=== PATIENT | male | born 1995 | race Caucasian/White ===

== ENCOUNTER 2018-04-09 15:49 | Emergency (ER) | payer MEDICAID, OTHER ==
[~2018-04-09] VITALS: Ht 170.2 cm; Wt 47.6 kg
--- OUTSIDE RECORDS SUMMARY | 2018-04-09 15:54 | XMS REPORT ---
Author Author VELIA PRADO Organization [facility] Address [address] [place] [address] Care Team Providers Care Pc Support Specialist Name Role Phone VELIA PRADO Unavailable PROBLEMS Type Condition ICD9-CM Code [id number] Code Onset Dates Condition Status SNOMED Code Problem Generalized anxiety disorder F41.1 Active 38790399 Problem Anxiety F41.9 Active [id number] ALLERGIES No Known Allergies ENCOUNTERS Encounter Location Date Diagnosis [facility] [id number] [place] [address] Dec, Generalized anxiety disorder F41.1 [facility] [id number] [place] [address] Dec, Generalized anxiety disorder F41.1 [facility] [id number], [place] [address] Dec, 2017 Anxiety F41.9 IMMUNIZATIONS No Known Immunizations SOCIAL HISTORY Never Assessed REASON FOR VISIT Anxiety-JUSTICE [place], patient having concerns about depression PLAN OF CARE Activity Details Follow Up 4 Weeks Reason: VITAL SIGNS Height 5 ft 7 in in 2017-12-29 Weight 107.3 lbs 2017-12-29 Temperature 99.0 degrees Fahrenheit 2017-12-29 Heart Rate 87 bpm 2017-12-29 Respiratory Rate 18 2017-12-29 Oximetry on room air:97 % 2017-12-29 BMI 16.80 kg/m2 2017-12-29 Blood pressure systolic 110 mmHg 2017-12-29 Blood pressure diastolic 80 mmHg 2017-12-29 MEDICATIONS Medication Instructions Dosage Frequency Start Date End Date Duration Status Sertraline HCl 50 mg Orally Once a day 1 tablet 24h Dec, 30 day (s) Active HydrOXYzine Pamoate 25 MG Orally every 8 hrs prn anxiety 1 capsule as needed Dec, 28 days Active RESULTS No Results PROCEDURES No Known procedures INSTRUCTIONS MEDICATIONS ADMINISTERED No Known Medications MEDICAL (GENERAL) HISTORY Type Description Date Medical History depression Surgical History broken right hand 2012 Hospitalization History surgery
--- OUTSIDE RECORDS SUMMARY | 2018-04-09 15:54 | XMS REPORT ---
Author Author BEBA LEON Organization [facility] Address [address] [place] [address] Care Team Providers Care Dial Screw Assembler Name Role Phone BEBA LEON Unavailable PROBLEMS Type Condition ICD9-CM Code [id number] Code Onset Dates Condition Status SNOMED Code Problem Generalized anxiety disorder F41.1 Active 13676762 Problem Anxiety F41.9 Active [id number] ALLERGIES No Information ENCOUNTERS Encounter Location Date Diagnosis [facility] [id number], [place] [address] Dec, Generalized anxiety disorder F41.1 [facility] [address], [place] [address] Dec, Generalized anxiety disorder F41.1 [facility] [id number], [place] [address] Dec, Anxiety F41.9 IMMUNIZATIONS No Known Immunizations SOCIAL HISTORY Never Assessed REASON FOR VISIT intake PLAN OF CARE Activity Details Follow Up 3 Weeks Reason: VITAL SIGNS MEDICATIONS No Known Medications RESULTS No Results PROCEDURES Procedure Date Ordered Result Body Site Psych diagnostic evaluation, new patient Dec 29, 2017 INSTRUCTIONS MEDICATIONS ADMINISTERED No Known Medications MEDICAL (GENERAL) HISTORY Type Description Date Medical History depression Surgical History broken right hand 2012 Hospitalization History surgery
--- OUTSIDE RECORDS SUMMARY | 2018-04-09 15:54 | XMS REPORT ---
Author Author BEBA LEON Organization [facility] Address [address] [place] [address] Care Team Providers Care Punch Finisher Name Role Phone BEBA LEON Unavailable PROBLEMS Type Condition ICD9-CM Code JHN98-[id number] Code Onset Dates Condition Status SNOMED Code Problem Generalized anxiety disorder F41.1 Active 36827876 Problem Anxiety F41.9 Active 98332812 ALLERGIES No Information ENCOUNTERS Encounter Location Date Diagnosis [facility] [id number], [place] [address] Dec, Generalized anxiety disorder F41.1 [facility] [id number], [place] [address] Dec, Generalized anxiety disorder F41.1 [facility] [id number] [address] Dec, Anxiety F41.9 IMMUNIZATIONS No Known Immunizations SOCIAL HISTORY Never Assessed REASON FOR VISIT [facility] PLAN OF CARE Activity Details Follow Up Following day Reason: VITAL SIGNS MEDICATIONS No Known Medications RESULTS No Results PROCEDURES Procedure Date Ordered Result Body Site Psychotherapy, patient &/family, 30 minutes, new patient Dec 28, 2017 INSTRUCTIONS MEDICATIONS ADMINISTERED No Known Medications MEDICAL (GENERAL) HISTORY Type Description Date Medical History depression Surgical History broken right hand 2012 Hospitalization History surgery
--- OUTSIDE RECORDS SUMMARY | 2018-04-09 15:54 | XMS REPORT ---
Author Author FLY DONIS [facility] Address [address] [place] [address] Care Team Providers Care Pipe Organ Mechanic Apprentice Name Role Phone GOLDMANYAYA HENDERSONFLY ZIEGLER Unavailable PROBLEMS Type Condition ICD9-CM Code QTW12-BI Code Onset Dates Condition Status SNOMED Code Problem Seasonal allergies J30.2 Active 196945933 Problem Generalized anxiety disorder F41.1 Active 06173339 Problem Anxiety F41.9 Active 60027446 ALLERGIES No Known Allergies ENCOUNTERS Encounter Location Date Diagnosis [facility] [id number] [place] [phone] Jan, Seasonal allergies J30.2 [facility] [id number] [place] [phone] Dec, Generalized anxiety disorder F41.1 [facility] [address] [address] Dec, Generalized anxiety disorder F41.1 [facility] [id number] [place] [address] Dec, Anxiety F41.9 IMMUNIZATIONS Vaccine Route Administration Date Status DEXAMETHASONE 4MG/ML (PER 1 MG) IM Intramuscular Jan 31, 2018 Administered DEPO MEDROL 40 MG/ML IM Intramuscular Jan 31, 2018 Administered SOCIAL HISTORY Never Assessed REASON FOR VISIT right eye is red et swollen since last noc. reports itching, denies pain. autumn, eye was matted shut this am, also reports cough et congestion for the past few days. autumn PLAN OF CARE Activity Details Follow Up prn Reason: VITAL SIGNS Height 5 ft 7 in in 2018-01-31 Weight 109.8 lbs 2018-01-31 Temperature 98.2 degrees Fahrenheit 2018-01-31 Heart Rate 80 bpm 2018-01-31 Respiratory Rate 20 2018-01-31 BMI 17.20 kg/m2 2018-01-31 Blood pressure systolic 114 mmHg 2018-01-31 Blood pressure diastolic 66 mmHg 2018-01-31 MEDICATIONS Medication Instructions Dosage Frequency Start Date End Date Duration Status Patanol 0.1 % Ophthalmic Twice a day 1 drop into affected eye 12h Jan, Active HydrOXYzine Pamoate 25 MG Orally every 8 hrs prn anxiety 1 capsule as needed Dec, 28 days Active Sertraline HCl 50 mg Orally Once a day 1 tablet 24h Dec, 30 day (s) Active RESULTS No Results PROCEDURES Procedure Date Ordered Result Body Site DEPO MEDROL 40 MG/ML Jan 31, 2018 DEXAMETHASONE 4MG/ML (PER 1 MG) Jan 31, 2018 THER/PROPH/DIAG INJ, SC/IM Jan 31, 2018 INSTRUCTIONS MEDICATIONS ADMINISTERED No Known Medications MEDICAL (GENERAL) HISTORY Type Description Date Medical History depression Surgical History broken right hand 2012 Hospitalization History surgery
[2018-04-09 16:33] LABS: BASOPHILS % (AUTO) 0 % (0-10); EOSINOPHILS % (AUTO) 0 % (0-10); HEMATOCRIT 43 % (40-54); HEMOGLOBIN 14.9 G/DL (13.3-17.7); LYMPHOCYTES # (AUTO) 1.2 X 10^3 (1.0-4.0); LYMPHOCYTES % (AUTO) 13 % (12-44); MEAN CORPUSCULAR HEMOGLOBIN 32 PG (25-34); MEAN CORPUSCULAR HGB CONC 35 G/DL (32-36); MEAN CORPUSCULAR VOLUME 92 FL (80-99); MEAN PLATELET VOLUME 9.6 FL (7.4-10.4); MONOCYTES # (AUTO) 0.8 X 10^3 (0.0-1.0); MONOCYTES % (AUTO) 9 % (0-12); NEUTROPHILS # (AUTO) 7.5 X 10^3 (1.8-7.8); NEUTROPHILS % (AUTO) 78 % (42-75); PLATELET COUNT 323 10^3/uL (130-400); RED CELL DISTRIBUTION WIDTH 12.4 % (10.0-14.5); WHITE BLOOD COUNT 9.6 10^3/uL (4.3-11.0)
[2018-04-09 16:50] LABS: BILIRUBIN,URINE NEGATIVE (NEGATIVE); CLARITY,URINE CLEAR; COLOR,URINE YELLOW; GLUCOSE, URINE (UA) 3+ (NEGATIVE); KETONES,URINE NEGATIVE (NEGATIVE); LEUKOCYTE ESTERASE ,URINE NEGATIVE (NEGATIVE); NITRITE,URINE NEGATIVE (NEGATIVE); PH,URINE 7 (5-9); PROTEIN,URINE 1+ (NEGATIVE); UROBILINOGEN,URINE 4 MG/DL (NORMAL)
[2018-04-09 16:59] LABS: AMORPHOUS SEDIMENT,UR FEW AMOR URATES /LPF; BACTERIA,URINE TRACE /HPF; SQUAMOUS EPITHELIAL CELL,UR RARE /HPF
[2018-04-09 17:01] LABS: ALANINE AMINOTRANSFERASE 48 U/L (0-55); ALBUMIN 4.5 GM/DL (3.2-4.5); ALKALINE PHOSPHATASE 81 U/L (40-136); BILIRUBIN,TOTAL 0.9 MG/DL (0.1-1.0); BUN/CREATININE RATIO 17; CALCIUM 9.2 MG/DL (8.5-10.1); CARBON DIOXIDE 25 MMOL/L (21-32); CHLORIDE 104 MMOL/L (98-107); CREATININE SERUM 0.87 MG/DL (0.60-1.30); GFR ESTIMATED > 60; GLUCOSE 138 MG/DL (70-105); POTASSIUM 4.7 MMOL/L (3.6-5.0); SALICYLATE < 5.0 MG/DL (5.0-20.0); SODIUM 140 MMOL/L (135-145)
[2018-04-09 17:06] LABS: AMPHETAMINE SCREEN, URINE POSITIVE (NEGATIVE); BARBITURATE SCREEN URINE NEGATIVE (NEGATIVE); BENZODIAZEPINES SCREEN URINE POSITIVE (NEGATIVE); CANNABINOID SCREEN, URINE POSITIVE (NEGATIVE); COCAINE SCREEN URINE NEGATIVE (NEGATIVE); METHADONE STAT NEGATIVE (NEGATIVE); METHAMPHETAMINE SCREEN URINE S NEGATIVE (NEGATIVE); OPIATE SCREEN URINE NEGATIVE (NEGATIVE); OXYCODONE STAT POSITIVE (NEGATIVE); PROPOXYPHENE STAT NEGATIVE (NEGATIVE); TRICYCLIC ANTIDEPRESSANTS SCRE NEGATIVE (NEGATIVE)
[2018-04-09 17:21] LABS: TSH (THYROID ANALYZER) 0.23 UIU/ML (0.35-4.94)
[2018-04-09 17:22] LABS: ACETAMINOPHEN < 10 UG/ML (10-30)
--- NOTE | 2018-04-09 17:36 | ED Psychosocial ---
General Chief Complaint: Substance Abuse Stated Complaint: OPIOID ADDICTION/DETOX/MEDICAL CLEARANCE Nursing Triage Note: PT AMBULATED TO ROOM 9 CO OF HAVING WITHDRAW FROM OPIATE ADDICTIONS, NEEDS MEDICAL CLEARENCE. PT STATES USES HYDROCODONE, OXYCODONE, MS CONTIN, DIPTI, XANAX, PSYCHITROPICS, LSD, POT. PT STATES LAST TAKEN XANAX TODAY USED OXYCODONE YESTERDAY AT [address] [facility] Hx Patient Social History Recent Foreign Travel: No Contact w/Someone Who Travel: No Recent Infectious Disease Expo: No Physical Exam Vital Signs - First Documented 04/09/18 16:14 Temp 97.1 Pulse 105 Resp 18 B/P (MAP) 127/78 (94) Pulse Ox 100 Capillary Refill : Less Than 3 Seconds Height, Weight, BMI Height: 5'7.00" Weight: 105lbs. oz. 47.630137ol; BMI Method:Stated Progress/Results/Core Measures Results/Orders Lab Results Laboratory Tests Test 04/09/18 16:24 04/09/18 16:45 Range/Units White Blood Count 9.6 4.3-11.0 10^3/uL Red Blood Count 4.70 4.35-5.85 10^6/uL Hemoglobin 14.9 13.3-17.7 G/DL Hematocrit 43 40-54 % Mean Corpuscular Volume 92 80-99 FL Mean Corpuscular Hemoglobin 32 25-34 PG Mean Corpuscular Hemoglobin Concent 35 32-36 G/DL Red Cell Distribution Width 12.4 10.0-14.5 % Platelet Count 323 130-400 10^3/uL Mean Platelet Volume 9.6 7.4-10.4 FL Neutrophils (%) (Auto) 78 H 42-75 % Lymphocytes (%) (Auto) 13 12-44 % Monocytes (%) (Auto) 9 0-12 % Eosinophils (%) (Auto) 0 0-10 % Basophils (%) (Auto) 0 0-10 % Neutrophils # (Auto) 7.5 1.8-7.8 X 10^3 Lymphocytes # (Auto) 1.2 1.0-4.0 X 10^3 Monocytes # (Auto) 0.8 0.0-1.0 X 10^3 Eosinophils # (Auto) 0.0 0.0-0.3 10^3/uL Basophils # (Auto) 0.0 0.0-0.1 10^3/uL Sodium Level 140 135-145 MMOL/L Potassium Level 4.7 3.6-5.0 MMOL/L Chloride Level 104 98-107 MMOL/L Carbon Dioxide Level 25 21-32 MMOL/L Anion Gap 11 5-14 MMOL/L Blood Urea Nitrogen 15 7-18 MG/DL Creatinine 0.87 0.60-1.30 MG/DL Estimat Glomerular Filtration Rate > 60 BUN/Creatinine Ratio 17 Glucose Level 138 H 70-105 MG/DL Calcium Level 9.2 8.5-10.1 MG/DL Corrected Calcium 8.8 8.5-10.1 MG/DL Total Bilirubin 0.9 0.1-1.0 MG/DL Aspartate Amino Transf (AST/SGOT) 35 H 5-34 U/L Alanine Aminotransferase (ALT/SGPT) 48 0-55 U/L Alkaline Phosphatase 81 40-136 U/L Total Protein 7.0 6.4-8.2 GM/DL Albumin 4.5 3.2-4.5 GM/DL TSH [place] Testing 0.23 L 0.35-4.94 UIU/ML Salicylates Level < 5.0 L 5.0-20.0 MG/DL Acetaminophen Level < 10 L 10-30 UG/ML Serum Alcohol < 10 <10 MG/DL Urine Color YELLOW Urine Clarity CLEAR Urine pH 7 5-9 Urine Specific [place] 1.010 L 1.016-1.022 Urine Protein 1+ H NEGATIVE Urine Glucose (UA) 3+ H NEGATIVE Urine Ketones NEGATIVE NEGATIVE Urine Nitrite NEGATIVE NEGATIVE Urine Bilirubin NEGATIVE NEGATIVE Urine Urobilinogen 4 H NORMAL MG/DL Urine Leukocyte Esterase NEGATIVE NEGATIVE Urine RBC (Auto) NEGATIVE NEGATIVE Urine RBC NONE /HPF Urine WBC NONE /HPF Urine Squamous Epithelial Cells RARE /HPF Urine Crystals NONE /LPF Urine Amorphous Sediment FEW CATHY URATES H /LPF Urine Bacteria TRACE /HPF Urine Casts NONE /LPF Urine Mucus NEGATIVE /LPF Urine Culture Indicated NO Urine Opiates Screen NEGATIVE NEGATIVE Urine Oxycodone Screen POSITIVE H NEGATIVE Urine Methadone Screen NEGATIVE NEGATIVE Urine Propoxyphene Screen NEGATIVE NEGATIVE Urine Barbiturates Screen NEGATIVE NEGATIVE Ur Tricyclic Antidepressants Screen NEGATIVE NEGATIVE Urine Phencyclidine Screen NEGATIVE NEGATIVE Urine Amphetamines Screen POSITIVE H NEGATIVE Urine Methamphetamines Screen NEGATIVE NEGATIVE Urine Benzodiazepines Screen POSITIVE H NEGATIVE Urine Cocaine Screen NEGATIVE NEGATIVE Urine Cannabinoids Screen POSITIVE H NEGATIVE My Orders Orders - NACHO SPEAR DO Ua Culture If Indicated (04/09/18 16:05) Thyroid Analyzer (04/09/18 16:05) Drug Screen Stat (Urine) (04/09/18 16:05) Cbc With Automated Diff (04/09/18 16:05) Comprehensive Metabolic Panel (04/09/18 16:05) Alcohol (04/09/18 16:05) Acetaminophen (04/09/18 16:05) Salicylate (04/09/18 16:05) Ekg Tracing (04/09/18 16:05) Free T4 (Free Thyroxine) (04/09/18 16:24) Vital Signs/I&O 04/09/18 16:14 Temp 97.1 Pulse 105 Resp 18 B/P (MAP) 127/78 (94) Pulse Ox 100 Blood Pressure Mean: 94 Departure Impression Primary Impression: Polysubstance abuse Disposition: 01 HOME, SELF-CARE Condition: Stable Departure-Patient Inst. Referrals: [facility] Patient Instructions: ALCOHOL AND SUBSTANCE ABUSE Add. Discharge Instructions: NO ALCOHOL OR DRUGS CALL [facility] IN THE MORNING FOR ARRANGE FOR ENROLLMENT IN THEIR [facility] All discharge instructions reviewed with patient and/or family. Voiced understanding. NACHO SPEAR DO Apr 09, 2018 17:35
[2018-04-09 17:43] VITALS: BP 127/78
[2018-04-09 18:04] LABS: FREE T4 (FREE THYROXINE) 1.26 NG/DL (0.70-1.48)
== END 2018-04-09 17:43 | disposition home or self-care (01) ==
LOC: ER 15:51
DX: F19.10 Other psychoactive substance abuse, uncomplicated (principal); F12.10 Cannabis abuse, uncomplicated
CPT/HCPCS: 36415; 80053; 80306; 80320; 80329; 81000; 84439; 84443; 85025